=== PATIENT | female | born 1945 | race Caucasian/White ===

== ENCOUNTER 2016-12-13 21:23 | Observation (INO) | payer MEDICARE, OTHER ==
[~2016-12-13] VITALS: Ht 160 cm; Wt 87.5 kg
--- NOTE | 2016-12-14 21:42 | ER ---
ADMIT: 12/14/2016 RM/LOC: 524 [facility] MR#: [id number] [address] [address] [place] [address] Emergency Room Report SEX: F AGE: 71 : 1945 DATE: 12/13/2016 HISTORY OF PRESENT ILLNESS: A 71-year-old female who walked in the Emergency Department rambling, incoherently with disjointed speech. She was not sure why she was here. She said she just walked in from where she did not know. She is unable to provide any history, unable to provide review of systems or past medical history. She had been in the ER earlier in the last week, where lab work has been done. Social Work consult put in for placement reasons. Tonight, she appears as mentioned above. PHYSICAL EXAMINATION: GENERAL: A 71-year-old female, who is not oriented to person, place, or time. She was alert again with pressured, rambling speech HEENT: Normocephalic, atraumatic. Her pupils were equal and reactive. LUNGS: Clear to auscultation. CARDIOVASCULAR: Regular rate and rhythm. ABDOMEN: Soft. EXTREMITIES: Unremarkable. NEUROLOGIC: No focal neuro findings. LABORATORY DATA: Pertinent lab was TSH in excess of 10 and UA was negative. Her labs and studies were reviewed from her ER visit earlier in the week. Those were unremarkable. ASSESSMENT AND PLAN: The patient was being admitted for placement reasons. It was not safe to send her back home. Yusef Pozo MD/ jonnie JOB #: [id number] CC: Deborah Heaton MD, Attending Physician Deborah Heaton MD, Family Physician
--- NOTE | 2016-12-17 08:45 | HP ---
ADMIT: 12/14/2016 RM/LOC: 524 [facility] MR#: [id number] [address] [address] [place] [address] History and Physical SEX: F AGE: 71 : 1945 DATE OF SERVICE: CHIEF COMPLAINT: Confusion. HISTORY OF PRESENT ILLNESS: Jayy is a 71-year-old female, who generally gets her care in [place], who presented to the Emergency Department overnight with increased confusion. She has had various living situations in last several years including apartments in [place] and most recently apartment in [facility] here in [place]. She says, however, over last several months, she has had increasing confusion and "seeing things." She knows that these things are not real. She says that she has a history of bipolar disorder and possibly schizophrenia for which she sees Psychiatry, Dr. Bustamante, in [place]. Her symptoms, however, have continued to worsen. She says that she thinks she may have "caused the of friends." Discussing this makes her quite distressed and she becomes very tearful. She does admit to depression. No suicidal thoughts, but does say at times she wishes she was better off . Otherwise, she is unable to explain much of her medical history. In review of her medications, it does appear that she has diabetes and hypertension. She also has hypothyroidism. It is unclear whether she has been taking her medications. This morning, she has no other complaints. She has no pain, although she says she has fallen in the past. No known head injuries. No fevers or chills. No signs or symptoms of infection. PAST MEDICAL HISTORY: 1. Questionable bipolar or schizophrenia diagnoses. 2. Hypertension. 3. Type 2 diabetes mellitus. 4. Hypothyroidism. MEDICATIONS: 1. Amlodipine 10 mg daily. 2. Claritin 10 mg daily. 3. Aspirin 81 mg daily. 4. Depakote 1000 mg twice daily. 5. Januvia 100 mg daily. 6. Levothyroxine 125 mcg daily. 7. Lisinopril 40 mg daily. 8. Metformin 1000 mg twice daily. 9. Metoprolol 50 mg twice daily. 10.Multivitamin daily. 11.Omeprazole 20 mg daily. 12.Seroquel 150 mg at bedtime. ALLERGIES: NONE. FAMILY HISTORY: Unknown. SOCIAL HISTORY: The patient lives in an apartment by herself at [facility]. She says that she has a son in [place]. ADMIT: 12/14/2016 RM/LOC: 524 [facility] MR#: [id number] [address] [address] [place] [address] History and Physical SEX: F AGE: 71 : 1945 REVIEW OF SYSTEMS: As per HPI. Otherwise, reviewed and negative. PHYSICAL EXAMINATION: VITAL SIGNS: Temperature 96.7, heart rate 101, respiratory rate 12, blood pressure 134/71, oxygen saturation is 100% on room air. GENERAL: The patient is awake, alert, and in no acute distress. She is cooperative with exam, but has quite a depressed affect. HEENT: Within normal limits. HEART: Regular rate and rhythm. No murmurs. LUNGS: Clear to auscultation bilaterally. No crackles or wheezes. ABDOMEN: Soft, nontender, and nondistended. Normal bowel sounds. EXTREMITIES: Warm and dry. No edema. NEUROLOGIC: Cranial nerves II through XII grossly intact. No focal neurologic deficit. PSYCHIATRIC: The patient is tearful. She has a depressed affect. No obvious suicidal ideations, although does express significant depression. Also, reports positive visual hallucinations. SKIN: No obvious rash or lesion. LABORATORY DATA: Please see electronic record for full details. She had labs drawn on 12/11 and a repeat urinalysis on 12/13. Urinalysis included a drug screen, which was negative. TSH was elevated at 10.2. No other significant abnormalities. IMAGING: Chest x-ray from 12/11 shows atelectasis and tiny pleural effusion. ASSESSMENT AND PLAN: 1. Depression with psychotic features of hallucination. Questionable history of bipolar disorder versus schizophrenia. She does report to seeing Psychiatry as an outpatient. Therefore, we will consult Psychiatry during this admission for assistance with medications and ADMIT: 12/14/2016 RM/LOC: 524 [facility] MR#: [id number] [address] [address] [place] [address] History and Physical SEX: F AGE: 71 : 1945 question for need of inpatient psychiatric evaluation and treatment. 2. Hypothyroidism with elevated TSH. I suspect that she has been noncompliant with her medications. We will restart her home medications and monitor her TSH over the next several weeks. 3. Type 2 diabetes mellitus. We will continue her home medications. We will obtain an A1c today. 4. Hypertension. This is currently controlled. 5. Disposition. Once the patient has been determined to be medically stable, we will plan for placement needs. Question if she needs inpatient psychiatric evaluation versus a skilled placement. At this time, I do not feel that she is safe to live independently given her current psychiatric state. Deborah Heaton MD/ jonnie JOB #: [id number] CC: Deborah Heaton, Attending Physician Deborah Heaton, Family Physician
--- NOTE | 2016-12-17 08:45 | DS ---
ADMIT: 12/14/2016 RM/LOC: 524 [id number] [id number] [address] [address] [place], [place] [address] Discharge Summary SEX: F AGE: 71 : 1945 ADMISSION DATE: 12/14/2016 DISCHARGE DATE: 12/16/2016 DISCHARGE DIAGNOSES: 1. Depression with psychotic features. 2. Schizoaffective disorder. 3. Delirium. 4. Noncompliance. 5. Hypothyroidism, uncontrolled. 6. Type 2 diabetes mellitus without insulin without known complications, controlled. 7. Nocturnal hypoxia. 8. Chronic hypertension. CONSULTS: Psychiatry, Dr. Lopez. PROCEDURES: None. REASON FOR ADMISSION: The patient was admitted from the emergency department after wandering into the facility. There was concern for safety with her home situation living independently. Therefore, she was admitted for further psychiatric evaluation and evaluation for placement needs. Please see H and P for full details. HOSPITAL COURSE: The patient was admitted to the medical-surgical floor, and her home medications restarted. Her Depakote was low and her TSH was elevated. This was concerning for noncompliance with her medications. Once her home medications were resumed, her mood and delirium did improve. Psychiatry was consulted, and upon their evaluation, they felt her acute symptoms were due to noncompliance. They did not feel that inpatient psychiatric hospitalization was necessary at this time. They did recommend that she have assistance at home to ensure that she is taking her medicines as prescribed. Physical Therapy, Occupational Therapy, and Social Work also evaluated the patient. Social Work has been working with the patient to try to establish home assistance. Medically, she was evaluated for any other causes of her delirium, and workup was unremarkable. This includes a normal CBC, CMP, urinalysis, and urine drug screen. Her A1c was also at goal at 6.7. Labs of note include a TSH of 10.2, valproic acid level of 17.3 on admission and after taking her medications was 83 at discharge. Hemoglobin was slightly low at 11.2. A chest x-ray had been performed on December 11 prior to admission and was unremarkable. It was noted that when she was asleep her oxygen saturations were low in the 80s or upper 70s. Respiratory therapy evaluated the patient's overnight trend oximetry and recommended 2 liters of oxygen which did maintain normal saturations. DISCHARGE MEDICATIONS: No changes from home. 1. Aspirin 81 mg daily. 2. Depakote ER 1000 mg b.i.d. 3. Metformin 1000 mg b.i.d. 4. Januvia 100 mg daily. 5. Lopressor 50 mg b.i.d. 6. Norvasc 10 mg daily. ADMIT: 12/14/2016 RM/LOC: 524 [facility] MR#: [id number] [address] [address] [place] [address] Discharge Summary SEX: F AGE: 71 : 1945 7. Omeprazole 20 mg daily. 8. Seroquel 150 mg at bedtime. 9. Synthroid 125 mcg daily. 10.Multivitamin daily. 11.Zestril 40 mg daily. DISCHARGE INSTRUCTIONS: The patient was discharged to home with Home Health Care. She has established with the [facility] as well as [facility]. She will have follow up with her regular provider, Dr. Shah, in the next two weeks, as well as her psychiatrist, Dr. Bustamante. Routine precautions were reviewed. Given some low oxygen saturations with sleep it was recommend that she use 2 liters oxygen with sleep and follow up with her primary physician regarding need for sleep study as an out patient. Greater than 30 minutes was spent in discharge. Deborah Heaton MD/ estela JOB #: [id number] CC: Deborah Heaton MD, Attending Physician Deborah Heaton MD, Family Physician
--- NOTE | 2016-12-17 09:44 | CO ---
ADMIT: 12/14/2016 RM/LOC: 524 [facility] MR#: [id number] [address] [address] [place] [address] Consultation SEX: F AGE: 71 : 1945 DATE OF CONSULTATION: 12/15/2016 ATTENDING PHYSICIAN: Deborah Heaton CONSULTING PHYSICIAN: Eric Lopez MD DATA: The patient was in today on Telehealth using [employer], and the video and audio were adequate for this session. The patient consented for a Telehealth session. Consultation was requested by a local provider per the hospital policy. DIAGNOSES AT THE TIME OF THIS EVALUATION: 1. Delirium due to medical etiologies. 2. Schizoaffective disorder. RECOMMENDATIONS: At the present time, the patient is not currently confused, psychotic, manic, or hypomanic. Not suicidal or homicidal. So, at the present time, I would not change the medication the way that they are prescribed. The patient [facility] and [facility]. I think that despite the patient is not overtly demented, she obviously needs some help when it comes to living situation, so, whatever is the next step in this case, probably assisting living facility or home health or some way which we can know that the patient is adequately taking medication and be checked by somebody frequently, that will be helpful for the patient, but for the time being, she can be discharged whenever medically cleared and whatever, obviously a better suited alternative placement is for her. HISTORY: This lady ended up in the [facility] being confused and having also a history of psychiatric problems. A Psychiatric consultation was requested, so I reviewed the electronic records and paper records, talked to the on patient on [id number] already using [employer] and with the nurse yesterday. I ordered the Depakote level yesterday and I talked to the nurse again today. The patient is a nice lady, who at present time is not confused, stated that she is worried about this recent hospitalization but not overtly depressed or anxious. She confirms that she has a recent hospitalization at [facility] with a diagnosis of bipolar she thought, so I reviewed the electronic records from [facility]. She was seen by Dr. Newton and diagnosed with schizoaffective disorder, discharged on Depakote and Seroquel and the patient was doing well upon discharge, but with a new Depakote level that I requested from [place], the level is very low, which leads me to believe of course that the patient is not being completely compliant with treatment. Her TSH is also very high, which again makes me think that she is not taking mediations appropriately and those things have actually contribute to her delirious state. Nevertheless, once the patient got into the [facility], the medications been restarted and they cared for her medical issues, the patient became confused once more. Again, ADMIT: 12/14/2016 RM/LOC: 524 [facility] MR#: [id number] [address] [place] [address] [place] [address] Consultation SEX: F AGE: 71 : 1945 at present time, there is no current psychosis, aleta, hypomania, no issues with obsessional compulsion, eating disorder, no recent post-traumatization or gambling. SOCIAL HISTORY: The patient is not a smoker or a heavy drinker or a drug user. PAST PSYCHIATRIC HISTORY: Three recent psychiatric hospitalization for aleta actually, most recent one in November. The patient sees Dr. Bustamante for therapy in [place], [place]. PAST MEDICAL HISTORY: Per H and P. Her family doctor is Dr. Johnathan Shah in [place], [place]. Records indicate that the patient is allergic to sulfa, something that was missing on the other records, so again, that is purely because of the delirium and the confusional state that she was going through. PERSONAL HISTORY: She lives by herself in her own apartment. She is . She has a son. No legal problems. No history of being in the . She is retired. HISTORY OF ABUSE: She has never been abused physically, sexually, or psychologically. FAMILY HISTORY: There are some people with depression and dementia. MENTAL STATUS EXAMINATION: This is a lady, cooperative, good hygiene, good eye contact. No psychomotor agitation or retardation. Speech is normal in volume and production. Mood is described as not so bad. She is just mildly anxious, mildly depressed. Affect is broad and appropriate to thought content. Thought content level; the patient denies suicidal or homicidal ideation. Denies current auditory or visual hallucination or delusional thoughts. Thought process; coherent, congruent. No loosening of association. Insight and judgment seemed to be fair. Memory actually is not so bad for her age. She remembered 2/3 words after 5 minutes, and she is well oriented and alert. She has mild cognitive decline, there does not appear to have diagnosis of dementia. Strength, intelligence. Barriers, support placement. Eric Lopez MD/ jonnie JOB #: [id number] CC: Deborah Heaton, Attending Physician Deborah Heaton, Family Physician
[2016-12-17] MEDS ORDERED: NORVASC DPS10 MG PO (13:22)
[2016-12-17] MEDS ORDERED: ASA CHILDREN'S81 MG PO (13:22)
[2016-12-17] MEDS ORDERED: DEPAKOTE ER500 MG PO (13:23)
[2016-12-17] MEDS ORDERED: CLARITIN DPS10 MG PO (13:23)
[2016-12-17] MEDS ORDERED: JANUVIA100 MG PO (13:24)
[2016-12-17] MEDS ORDERED: LEVOTHYROXINE125 MCG PO (13:24)
[2016-12-17] MEDS ORDERED: ZESTRIL DPS40 MG PO (13:24)
[2016-12-17] MEDS ORDERED: GLUCOPHAGE-DPS500 MG PO (13:25)
[2016-12-17] MEDS ORDERED: MULTI-DAY VITA1 EACH PO (13:26)
[2016-12-17] MEDS ORDERED: LOPRESSOR DPS50 MG PO (13:26)
[2016-12-17] MEDS ORDERED: PRILOSEC DPS20 MG PO (13:26)
[2016-12-17] MEDS ORDERED: SEROQUEL DPS100 MG PO (13:27)
== END 2016-12-16 16:50 | disposition home health service (06) ==
LOC: ER 21:23 → 5MS 12-14 00:17
PROVIDERS: ADMIT Family Medicine
DX: F32.3 Major depressive disorder, single episode, severe with psychotic features (principal); F25.9 Schizoaffective disorder, unspecified; E11.9 Type 2 diabetes mellitus without complications; I10 Essential (primary) hypertension; E03.9 Hypothyroidism, unspecified; R09.02 Hypoxemia; R41.0 Disorientation, unspecified; Z79.82 Long term (current) use of aspirin; Z79.84 Long term (current) use of oral hypoglycemic drugs; Z91.14 Patient's other noncompliance with medication regimen; Z79.899 Other long term (current) drug therapy

== ENCOUNTER 2017-01-10 08:23 | Emergency (ER) | payer MEDICARE, OTHER ==
[~2017-01-10 08:23] MED LIST: ASA CHILDREN'S81 MG PO; CLARITIN DPS10 MG PO; DEPAKOTE ER500 MG PO; GLUCOPHAGE-DPS500 MG PO; JANUVIA100 MG PO; LEVOTHYROXINE125 MCG PO; LOPRESSOR DPS50 MG PO; MULTI-DAY VITA1 EACH PO; NORVASC DPS10 MG PO; PRILOSEC DPS20 MG PO; SEROQUEL DPS100 MG PO; ZESTRIL DPS40 MG PO
--- NOTE | 2017-01-10 11:45 | ER ---
ADMIT: 01/10/2017 RM/LOC: ER [facility] MR#: [id number] [address] [facility] [address] [place], [place] [address] [place] [address] Emergency Room Report SEX: F AGE: 71 : 1945 DATE: 01/10/2017 ADDENDUM: A 71-year-old white female, coming in with mainly a preponderance of complaints, but mainly due to she says she cannot sleep. This lady was here about a month ago. At that time, they thought she has schizoaffective disorder. There is questionable delirium due to some medical etiology. Bottom line is psych had seen her and this is pretty much a recurrent chronic situation. There is still some question of her overall diagnosis. She has been given a bipolar schizoaffective disorder, which is chronic. She is not suicidal. She is not an EPC candidate. She sees family doctor, Dr. Johnathan Shah, in [place] but she is over here at this time, living at [facility]. There is no diagnosis of dementia at this time. I think the overall plan at this time I did give her 2 of Haldol at this time and that might help her sleep a little bit. She does have Seroquel if she takes it. She is not suicidal. They had again Keppra on independent placement as before. I spoke with Dr. Heaton who had seen her the last time and again got about the same story. At this time, there is no trauma. There are no other acute findings. This is all chronic. They do have assisted living, is where they put her, so we did get her back to [facility] with help and then they will have to follow up with her social service consult applied as well; as well as were to see if we can get some response from Adult Protective Services as well. CONDITION ON DISCHARGE: Fair. Johnathan uMrphy MD/ jonnie JOB #: [id number] CC: Johnathan Murphy MD, Attending Physician
--- NOTE | 2017-01-12 13:05 | NUR ---
Received referral from ED. Called and spoke with Crystal from [facility]. States pt was last seen on January 06 to help get groceries and run errands with pt. [facility] is transporting pt to her doctors appt in [place]. Leni with [facility] saw pt today and states her medications were all mixed up. Pt has been unable to manage her medications successfully. Pt would benefit from CASH level of care. SWS checking with [facility] to see if they can help assist pt with Medicaid and CASH. SWS called [facility] hotline. They received a call from the [facility] on Wednesday. Added more information to the report.
--- NOTE | 2017-01-14 09:07 | NUR ---
Spoke with Levi Saavedra Coordinator and Aging and Disability Resource Center Coordinator (phone [phone] ext [phone]). States she asked pt if she was willing to go to [facility]. Pt declines CASH at this time. Yumi states she can help pt apply for Medicaid but she won't qualify for Medicaid unless she goes to [facility]. Called and spoke with [employer] Public [employer]ians[employer] (phone [phone]). States in order for them to get involved a third constitution party will have to petition the court and find an prosecuting attorney to draw up the paperwork. States they are the last resort. [employer] now has an open case. Melissa is the [employer]PS storage engineer (phone [phone]).
--- NOTE | 2017-01-14 12:27 | NUR ---
Spoke with [facility] [employer] Process Control Technician. States pt was admited to [facility] this week.
== END 2017-01-10 09:40 | disposition home or self-care (01) ==
LOC: ER 08:23
DX: F25.9 Schizoaffective disorder, unspecified (principal); G47.00 Insomnia, unspecified; F32.9 Major depressive disorder, single episode, unspecified; E03.9 Hypothyroidism, unspecified; Z88.0 Allergy status to penicillin; Z88.2 Allergy status to sulfonamides; Z79.899 Other long term (current) drug therapy

== ENCOUNTER 2017-01-25 03:32 | Inpatient (IN) | payer MEDICARE, OTHER ==
[~2017-01-25] VITALS: Ht 160 cm; Wt 88.0 kg
--- NOTE | ~2017-01-25 | ECH ---
Transthoracic Echocardiography Report (TTE) Demographics Patient Name JAYY YANES Date of Study 01/25/2017 Patient Number [id number] Visit Number [id number] Date of 1945 Room Number 501 Accession Number [id number] Gender Female Age 71 year(s) Referring Yanet Mckeon MD Supervisor [employer] Talya Condon [facility] Physician Physician Interpreting Shannan James Rv Technician Physician MD Supervising Ordering Physician Yanet Mckeon MD, MD/P Nurse Stress Gimp Tacker Conclusions Summary Technically fair exam. The estimated left ventricular ejection fraction is 60-65%. Mild concentric left ventricular hypertrophy. Diastolic assessment reveals Grade I diastolic dysfunction. Mild tricuspid regurgitation by color Doppler. Normal sized right ventricle with preserved systolic function. There is mild pulmonary hypertension. The pulmonary pressure (RVSP) is 37mmHg. Procedure Type of Study TTE procedure:Echo Complete SF. Procedure Date Date: 01/25/2017 Start: 11:17 AM Technical Quality: Fair due to body habitus. Indications:Pulmonary embolus. Appropriate Use Criteria: 9 Height: 63 inches Weight: 190.92 pounds BSA: 1.9 m Rhythm: Within normal limits HR: 73 bpm BP: 130/69 mmHg M-Mode/2D Measurements LV Diastolic Dimension: 3.86 cm LV Systolic Dimension: 2.28 cm LV Septum Diastolic: 0.97 cm LV PW Diastolic: 1.05 cm AO Root Dimension: 2.77 cm Cardiac Output: 6.4 l/min LA Dimension: 3.79 cm Cardiac Index: 3.37 l/min*m RV Diastolic Dimension: 3.48 cm LA volume index: 22 ml/m LVOT: 2.22 cm LVOT VTI: 22.66 cm RV Base: 3.2 cm LV Stroke volume: 87.67 ml RV Mid: 2.7 cm LV Stroke volume index: 46.14 ml/m RV Length: 6.8 cm Doppler Measurements AV Peak Velocity: 1.29 m/s MV Peak E-Wave: 0.74 m/s AV Peak Gradient: 6.66 mmHg MV Peak A-Wave: 1.07 m/s AV Mean Gradient: 3.88 mmHg MV E/A Ratio: 0.7 LVOT Peak Velocity: 0.94 m/s MV P1/2t: 91.7 msec AV Area (Continuity):3.87 cm MV Deceleration Time: 348.1 msec TR Velocity:2.82 m/s MV Area (PHT): 2.4 cm TR Gradient:31.88 mmHg PV Peak Velocity: 0.89 m/s Estimated RAP:5 mmHg PV Peak Gradient: 3.15 mmHg Estimated RVSP: 37 mmHg Estimated PASP: 36.88 mmHg RA Area: 9.19 cm Findings Left Ventricle The left ventricle is normal in size . Mild concentric left ventricular hypertrophy. Diastolic assessment reveals Grade I diastolic dysfunction. Right Ventricle Normal right ventricle structure and function. Left Atrium Normal left atrial size. Right Atrium Normal right atrial size. Mitral Valve Normal mitral valve structure and function. Mild mitral annular calcification. Aortic Valve The aortic valve is mildly sclerotic. Tricuspid Valve Normal appearing tricuspid valve. Mild tricuspid regurgitation by color Doppler. There is mild pulmonary hypertension. The pulmonary pressure (RVSP) is 37mmHg. Pulmonic Valve The pulmonic valve is not well visualized. Pericardial Effusion No evidence of pericardial effusion. Miscellaneous Visualized portions of the aortic root and ascending aorta appear normal in size. Pleural Effusion No evidence of pleural effusion. Contractility Score LV regional wall motion:(0-Non visualized 1-Normal 2-Hypokinesis 3-Akinesis 4-Dyskinesis 5-Aneurysm) Signature
--- NOTE | 2017-01-25 19:07 | ER ---
ADMIT: 01/25/2017 RM/LOC: 501 [facility] MR#: [id number] [address] [address] [place] [address] Emergency Room Report SEX: F AGE: 71 : 1945 DATE: 01/25/2017 CHIEF COMPLAINT: Weakness. HISTORY OF PRESENT ILLNESS: The patient is a 71-year-old female, complaining of increasing weakness, chest tightness, shortness of breath for the past week that she has attributed to the broken down elevator in [facility]. She denies any hemoptysis, syncope, or prior history of DVT/PE. PAST MEDICAL HISTORY: ILLNESSES: Type 2 diabetes, hypertension, UTI, bipolar schizoaffective type, and hypothyroidism. OPERATIONS: None. ALLERGIES: PENICILLIN AND SULFA. MEDICATIONS: Please see nurse's MAR. SOCIAL HISTORY: , lives alone at [facility], nonsmoker, nondrinker, no illicit drugs. FAMILY HISTORY: Negative per chart review. REVIEW OF SYSTEMS: A 12-point review of systems negative for all other systems, illnesses, or operations except as outlined above. PHYSICAL EXAMINATION: VITAL SIGNS: Temp 95.9, pulse 86, respirations 12, BP 110/49, and SaO2 of 97% on room air. GENERAL: Nontoxic, non-diaphoretic without jaundice or icterus. HEENT: Normocephalic. No evidence of epistaxis, rhinorrhea, or otorrhea. NECK: Supple without lymphadenopathy or thyromegaly. CHEST: Breath sounds equal, clear without rales, rhonchi, or wheeze. HEART: Regular rate and rhythm without murmur or gallop, diffuse lower leg edema, 2 to 3+ noted bilaterally. ABDOMEN: Soft, nontender, nondistended without mass or megaly. Bowel sounds hypoactive. EXTREMITIES: No evidence of Homans sign, synovitis, or dermatitis. NEURO: EOMI. PERRLA. No evidence of drift, dysarthria, or ataxia. Gait unsteady. MEDICAL DECISION MAKING: The patient displays mild cognitive insufficiencies and schizoaffective personality features. No manohar psychosis. Denies any suicidal ideation. MEDICAL DECISION MAKING: Chest x-ray negative. EKG shows sinus rhythm without ST-T or Q-wave change unchanged from December 2016. CTA chest shows small bilateral pulmonary emboli. CT head negative. Hemoglobin 11.4. CRP less than 0.29. Lactic 2.6. Glucose 214. Free T4 of 0.93. TSH 4.96. Valproic acid 62.5. ETOH 20. Lipase 64. D-dimer 1.46. Urine tox screen ADMIT: 01/25/2017 RM/LOC: [address] [place] [address] MR#: [id number] [address] [place] [address] [place] [address] Emergency Room Report SEX: F AGE: 71 : 1945 negative. Urinalysis; 3 wbc's, less than 1 rbc. Discussed findings with Dr. Holt and [place]. Dr. South gave orders for anticoagulation, venous Doppler legs, and admission to floor. We will have Social Work consult for placement near the family in May. DIAGNOSES: 1. Bilateral pulmonary emboli. 2. Bipolar affective disorder, schizoaffective type. 3. Hypothyroidism. 4. Diabetes. RECOMMENDATION: Admit inpatient telemetry for Dr. Holt community call. ADMISSION/DISCHARGE CONDITION: Fair. The patient is a full code. Elias Aquino MD/ jonnie JOB #: [id number] CC: Ruben Holt MD, Attending Physician Johnathan Shah MD, Family Physician MD Ruben Allen MD
--- NOTE | 2017-02-03 07:49 | HP ---
ADMIT: 01/25/2017 RM/LOC: [address] [facility] MR#: [id number] [address] [place] [address] History and Physical SEX: F AGE: 71 : 1945 DATE OF SERVICE: HISTORY OF PRESENT ILLNESS: The patient is a 71-year-old [facility] patient, who lives over at [facility], came into the ER tonight with complaints of nausea and lower extremity swelling. She says about for the last week, the elevator has been broken at [facility]. She lives at the top floor of the building that she has been walking the stairs quite frequently. She has noticed swelling up to her knees in bilateral lower extremities and some cramping and pain in her legs and feet. She notes that previously, she has had some swelling into her ankles but never this high or this bad in her legs. She has also noticed some nausea and shortness of breath with exertion that is new for her; so, she came over to get it checked out today. In the ER, she was evaluated. D-dimer was elevated, so CTA was performed, which shows multiple left and right small subsegmental and segmental pulmonary emboli. She was started on heparin and will be admitted for bridging anticoagulation. The patient also has history of schizoaffective disorder, and what sounds like early-onset Alzheimer dementia. There have been talks for her to be moved to a facility in [place], which would be near her family in [place] and she was supposed to meet with the social work assistant from the [facility] today to discuss these issues. She normally follows with Dr. Shah as primary care in [place] and her psychiatrist is Dr. Bustamante, who is also in [place]. PAST MEDICAL HISTORY: 1. Schizoaffective disorder. 2. Hypertension. 3. Type 2 diabetes. 4. Hypothyroidism. MEDICATIONS: 1. Aspirin 81 mg daily. 2. Depakote 1000 mg b.i.d. 3. Metformin 1000 mg b.i.d. 4. Januvia 100 mg daily. 5. Lopressor 50 mg b.i.d. 6. Norvasc 10 mg daily. 7. Omeprazole 20 mg daily. 8. Seroquel 150 mg at bedtime. 9. Synthroid 125 mcg daily. 10.Multivitamin. 11.Zestril 40 mg daily. ALLERGIES: PENICILLIN AND SULFA. SOCIAL HISTORY: The patient lives by herself here in an apartment in [facility]. Has a son in [place]. Denies alcohol, tobacco, or illicit substance use. FAMILY HISTORY: Her father and brother of Alzheimer dementia. ADMIT: 01/25/2017 RM/LOC: [address] [facility] MR#: [id number] [address] [place] [address] History and Physical SEX: F AGE: 71 : 1945 REVIEW OF SYSTEMS: The patient notes some chronic arthritic pain in hand and feet. She notes some increase in swelling of her lower extremities as well as some nausea and shortness of breath recently. She also notes some increased confusion and notes problems with common everyday tasks such as shopping for herself and balancing a checkbook. She is supposed to be seeing a social work assistant for this today. The patient denies any pain. No chest pain. Ten- point review of systems was performed and is negative except as noted above and per HPI. PHYSICAL EXAMINATION: VITAL SIGNS: Blood pressure 135/75, heart rate 57, respirations 17, O2 saturation 92% on room air. GENERAL: The patient is in no acute distress. Does have some mild confusion. HEENT: Normocephalic and atraumatic. EOMI. NECK: No lymphadenopathy or JVD. CARDIOVASCULAR: Regular rhythm and rate. No murmurs, rubs, or gallops. PULMONARY: Clear to auscultation bilaterally. ABDOMEN: Soft, nontender, nondistended. EXTREMITIES: Showed 2+ pitting edema bilaterally to the knees. No clubbing or cyanosis. LABS AND IMAGING: White count 5.5, hemoglobin 11.4, platelets 171. UDS is negative. Lactic acid is 2.6. D-dimer was 1.46. CMP is notable for a BUN of 29, glucose 214, calcium 7.7, albumin 2.8. GFR is 57. Troponins normal. BNP is 128. Ethanol 20. TSH is 4.96. CRP is normal. Valproic acid level is therapeutic at 62.5. CT scan of the chest shows few segmental size pulmonary emboli in the left upper lobe, subsegmental size right upper lobe pulmonary emboli, and an embolus in the right lower lobe superior segment branch with a small clot burden. CT of the head was negative for any acute findings. ASSESSMENT AND PLAN: 1. Pulmonary emboli. The patient was started on a heparin drip and p.o. warfarin. She will have supplemental O2 and pain control as needed. We will also order bilateral ultrasounds of the lower legs as well as an echo for further evaluation. 2. Schizoaffective disorder. We will continue her home antipsychotic medications. 3. Dementia, likely Alzheimer's. We will request a Social Work consult as she was supposed to meet with the social work assistant from the [facility] today to discuss placement in [place]. Daniel South MD Resident / Ruben Holt MD / modl JOB #: [id number] CC: Ruben Holt, Attending Physician ADMIT: 01/25/2017 RM/LOC: [address] [place] [address] MR#: [id number] [id number] [address] [place] [address] History and Physical SEX: F AGE: 71 : 1945 Johnathan Shah, Family Physician
--- NOTE | 2017-02-11 07:28 | DS ---
ADMIT: 01/25/2017 RM/LOC: 501 [facility] MR#: [id number] [address] [place] [address] Discharge Summary SEX: F AGE: 71 : 1945 ADMISSION DATE: 01/25/2017 DISCHARGE DATE: 01/29/2017 DISCHARGE DIAGNOSES: 1. Pulmonary embolus. 2. Schizoaffective disorder. 3. Mild dementia. 4. Urinary retention resolved. 5. Type 2 diabetes. 6. Chronic hypoxia on home O2. CONSULTATIONS: None. PROCEDURES: None. BRIEF HISTORY OF PRESENT ILLNESS: Patient is a 71-year-old, who lives at the [facility], who presented to the ER with complaints of lower extremity swelling and shortness of breath. Evaluation in the ER revealed an elevated D-dimer and a CTA, which revealed multiple bilateral subsegmental and segmental pulmonary emboli. She was hemodynamically stable but was started on heparin for her blood clots. HOSPITAL COURSE: The patient remained on heparin drip protocol and was started on warfarin. She did not require any supplemental O2, but while discussing this patient noted that she does have home oxygen that she is supposed to be wearing 2 L at night. So, this was continued in the hospital. Blood sugars remained stable. During discharge planning, she was accepted into [facility], but patient did not want to go to [place], she would rather be in [place], so discharge planning was ongoing. She was having troubles emptying her bladder so she was instructed to double void. Postvoid residuals were upwards of 500-900 mL so the patient was straight cathed. She continued to double void with resolution of her urinary retention. The patient requested to be DNR/DNI. Since she refused placement in [place], she agreed to be discharged back to [facility] with ongoing discharge planning in hopes of getting her to an assisted living facility in [place] closer to her children. Heparin drip was stopped. INR was therapeutic at 2.87 on day of discharge. She was discharged home in stable condition. DISCHARGE MEDICATIONS: 1. Amlodipine 10 mg daily. 2. Loratadine 10 mg daily. 3. Aspirin 81 mg daily. 4. Divalproex 1000 mg b.i.d. ADMIT: 01/25/2017 RM/LOC: [address] [facility] MR#: [id number] [address] [place] [address] Discharge Summary SEX: F AGE: 71 : 1945 5. Januvia 100 mg daily. 6. Synthroid 125 mcg daily. 7. Lisinopril 40 mg daily. 8. Metformin 1 g b.i.d. 9. Metoprolol 50 mg daily. 10.Omeprazole 20 mg daily. 11.Seroquel 100 mg at bedtime. 12.Warfarin 2.5 mg daily. FOLLOWUP: The patient is to get an INR in one week and follow up with her PCP. She was also instructed to continue her 2 L of oxygen by nasal cannula at bedtime. She was discharged DNR/DNI status. Daniel South MD Resident / Ruben Holt MD / estela JOB #: [id number] CC: Ruben Holt MD, Attending Physician Johnathan Shah MD, Family Physician
== END 2017-01-29 11:53 | disposition home or self-care (01) | DRG 299 ==
LOC: ER 03:32 → 5MS 05:50
PROVIDERS: ADMIT Family Medicine
DX: I82.492 Acute embolism and thrombosis of other specified deep vein of left lower extremity (principal); I26.99 Other pulmonary embolism without acute cor pulmonale; I82.442 Acute embolism and thrombosis of left tibial vein; I82.491 Acute embolism and thrombosis of other specified deep vein of right lower extremity; G30.9 Alzheimer's disease, unspecified; E11.9 Type 2 diabetes mellitus without complications; F25.0 Schizoaffective disorder, bipolar type; F02.80 Dementia in other diseases classified elsewhere, unspecified severity, without behavioral disturbance, psychotic disturbance, mood disturbance, and anxiety; R09.02 Hypoxemia; R33.9 Retention of urine, unspecified; I10 Essential (primary) hypertension; E03.9 Hypothyroidism, unspecified; Z79.82 Long term (current) use of aspirin; Z66 Do not resuscitate; Z79.84 Long term (current) use of oral hypoglycemic drugs